=== PATIENT | female | born 1985 ===

== ENCOUNTER 2016-07-14 19:42 | Outpatient (CLI) | payer MEDICAID | END 2016-07-14 21:30 | disposition home or self-care (01) | LOC: FBC 19:42 → FBCOUT 19:42 | PROVIDERS: ATTEND Family Medicine | DX: O47.9 False labor, unspecified (principal); Z3A.00 Weeks of gestation of pregnancy not specified | CPT/HCPCS: 59025; 81002; G0463 ==

== ENCOUNTER 2016-07-15 05:37 | Inpatient (IN) | payer MEDICAID ==
[2016-07-15] MEDS ORDERED: IV START KIT ONE (06:06)
[2016-07-15] MEDS ORDERED: PUMP TUBING ONE (06:07)
[2016-07-15] MEDS ORDERED: LIDOCAINE Viscous 2% 15 ML UDCUP ONE (06:07)
[2016-07-15] MEDS ORDERED: LIDOCAINE 1% (PRES FREE) 30 ML VIAL ONE (06:07)
[2016-07-15] MEDS ORDERED: LACTATED RINGERS 1,000 ML ONE (06:07)
[2016-07-15] MEDS ORDERED: MINERAL OIL 25 ML BOT ONE (06:07)
[2016-07-15] MEDS ORDERED: OXYTOCIN 10 UNITS/ML VIAL ONE (06:07)
[2016-07-15] MEDS ORDERED: OXYTOCIN IN LR 500 ML IV ONE ×2 (06:07→06:10)
[2016-07-15] MEDS ORDERED: SODIUM CHLORIDE 0.9% FLUSH 20 ML ONE (06:08)
[2016-07-15] MEDS ORDERED: LACTATED RINGERS 1,000 ML IV PRN (06:10)
[2016-07-15] MEDS ORDERED: FENTANYL 100 MCG/2 ML VIAL IV ONE (06:11)
[2016-07-15 06:38] LABS: HEMATOCRIT 37.5 % (37.0-47.0); MEAN CELL VOLUME 92.4 fl (81.0-99.0); MEAN CORPUSCULAR HGB CONC 34.7 g/dl (33.0-37.0)
[2016-07-15] MEDS ORDERED: NALOXONE HCL 0.4 MG/ML VIAL ONE (07:18)
[2016-07-15 07:36] VITALS: BMI 35.3
[2016-07-15] MEDS ORDERED: HYDROCODONE/ACETAMINOPHEN 5/325MG TABLET PO PRN (07:44)
[2016-07-15] MEDS ORDERED: LANOLIN 50 APPLIC/7G TUBE TP PRN (07:44)
[2016-07-15] MEDS ORDERED: BENZOCAINE/MENTHOL 60 APPLIC/BOT TP PRN (07:44)
[2016-07-15] MEDS: IBUPROFEN 800 MG TABLET PO PRN ×2 (08:46→16:25)
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
--- NOTE | 2016-07-15 09:59 | PCMDEL ---
Delivery Note - Labor 1st stage (hr/min):: 4 hrs 18 min 2nd stage (hr/min):: 7 min 3rd stage (hr/min):: 4 min Total (hr/min):: 4 hrs 25 min Pushed (hr/min):: 7 min - Delivery Delivery (Date): 07/15/16 Delivery (Time): 07:25 Gender: Male Length: 1 ft 8 in Position: OA Umbilical Cord: 3 Vessel Delayed Cord Clamping:: < 1-2 min 1 Minute Total: 9 5 Minute Total: 9 Placenta:: 07:29 EBL:: 300 mL Perineum:: intact Suture:: none Anesthesia/Meds:: Fentanyl IV x 1 Length ROM:: 12 min Comments:: of NB male, apgars 9/9, intact perineum. Light meconium fluid. RT present for delivery. Infant handed to mom. Cord clamped and cut after > 1 min delay. Cord blood obtained. Placenta delivered and grossly normal. Pit IV used for active management of 3rd stage of labor. Fundus firm. No lacerations. QBL 300 mL.
[2016-07-16] MEDS: IBUPROFEN 800 MG TABLET PO PRN ×2 (02:10→08:04)
[2016-07-16 07:00] LABS: HEMOGLOBIN 10.9 gm/l (12.0-16.0)
[2016-07-16 07:50] VITALS: BP 90/51
--- NOTE | 2016-07-16 09:39 | PDOC39B ---
Hospital Course: ADMIT DATE: 07/15/16 DISCHARGE DATE: 07/16/16 ADMISSION DIAGNOSES: labor PROCEDURES: HISTORY OF PRESENT ILLNESS: 30 year old G5 T2 L2 at 40 weeks 5 days presenting with labor HOSPITAL COURSE: The patient delivered by , Is doing well. No concerns. By day of discharge the patient is ambulating, eating, voiding, and passing flatus without difficulty. Pain is controlled and lochia is appropriate. She is [] - Physical Exam Vital Signs: Temp Pulse Resp BP Pulse Ox 98.2 F 72 16 90/51 07/16/16 07:43 07/16/16 07:43 07/16/16 07:43 07/16/16 07:43 General: Afebrile Psych/Mental Status: Mood/Affect Appropriate Neurological: Alert Lungs: Clear to Auscultation Bilaterally Cardiovascular: Regular Rate and Rhythm Breast: Soft Fundus: Firm, At Umbilicus Lochia: Light Rectal Exam: Deferred Extremities: Other (nt, no edema) Skin: Other - Discharge Diagnosis (1) (spontaneous vaginal delivery) Status: Acute Assessment/Plan: doing well. discharge home - Discharge Plan Condition: Good Disposition: Home Prescriptions: Ibuprofen [Motrin] 800 mg PO Q8H PRN #30 tablet PRN Reason: Pain Follow-Up: Gilberto Ayoub MD [Primary Care Provider] - In 6 weeks
== END 2016-07-16 12:25 | disposition home or self-care (01) | DRG 775 ==
LOC: FBC 05:37 → FBCOUT 05:37 → FBC 06:10 → FBCOUT 06:10
PROVIDERS: ADMIT Family Medicine; ATTEND Family Medicine
PROC: 10E0XZZ Delivery of Products of Conception, External Approach (ICD-10-PCS; principal; 2016-07-15)
DX: O77.0 Labor and delivery complicated by meconium in amniotic fluid (principal); O35.1XX0 Maternal care for (suspected) chromosomal abnormality in fetus, not applicable or unspecified; Z87.891 Personal history of nicotine dependence; Z86.001 Personal history of in-situ neoplasm of cervix uteri; Z3A.40 40 weeks gestation of pregnancy; Z37.0 Single live birth